=== PATIENT | male | born 1990 | race Caucasian/White ===

== ENCOUNTER 2023-01-22 14:05 | Emergency (ER) | payer OTHER, SELFPAY ==
[2023-01-22 14:20] VITALS: BP 137/89; PULSE 106; RESP 20; TEMP 37.4; O2SAT 98
[2023-01-22 14:50] LABS: Abs Immature Grans 0.06 10^3/uL (0.0-0.06); Absolute Basophil Count 0.05 10^3/uL (0.0-0.2); Absolute Lymphocyte Count 1.75 10^3/uL (1.2-3.4); Absolute Neutrophil Count 7.82 10^3/uL (1.2-6.7); Basophils % 0.5; HCT 43.3 % (40.0-50.0); HGB 15.1 g/dL (13.5-17.5); Immature Grans % 0.6; MCH 30.5 pg (27.0-33.0); MCHC 34.9 % (32.0-36.0); MCV 88 fL (80-95); MPV 8.8 fL (8.0-11.0); Monocytes % 5.8; Neutrophils % 76.1; Platelet Count 239 10^3/uL (130-400); RBC 4.95 10^6/uL (4.36-5.78); RDW 12.5 % (11.8-14.1); RDW-SD 40.4 fL; WBC 10.28 10^3/uL (4.4-10.8)
[2023-01-22] MEDS: LORazepam 1 MG TAB PO (14:52)
--- NOTE | 2023-01-22 14:52 | ED.GENADUL_ITS ---
Discharge Plan Discharge Details Chief Complaint: PsychEval Primary Care Provider: Pinky,Local ED Provider: Jeffrey Geiger Home Meds and New Rx's Prescriptions: No Action multivitamin [Daily Multi-Vitamin] Tablet 1 tab PO DAILY Medical Decision Making 1458 --32-year-old male arrives with law enforcement for mental health evaluation, family concerned with erratic behavior. Patient denies known history of psychiatric illness. Patient denies substance use. No trauma. Patient exhibiting labile and providing odd responses to on history and review of systems. For example, when asked why he is having difficulty sleeping, he responds just trying to figure out a solution. I do not know which color to pick. I am not can tell you which color to pick. You should figure it out. Patient is currently here voluntarily but does seem to lack insight and is exhibiting labile erratic behavior. Concern for acute psychosis likely secondary to clemente. No known psychiatric history. Will obtain CT of the head to assess for space-occupying frontal lesion. Patient has prior history of alcohol use disorder and underwent alcohol rehabilitation 1 year ago and notes no recent use. -- I cat's mother lives at to obtain additional information: She is not able or willing to provide additional information regarding any prior psychiatric history at this time. 1545 --CT head interpreted by radiology: No acute intracranial process. Patient medically screened and no acute medical condition identified. Will consult crisis screener for evaluation. Lab Data Lab results reviewed: Yes I reviewed the patient's lab results. Labs: Laboratory Tests Range/Units 01/22/23 14:45 WBC (4.4-10.8) 10^3/uL 10.28 RBC (4.36-5.78) 10^6/uL 4.95 Hgb (13.5-17.5) g/dL 15.1 Hct (40.0-50.0) % 43.3 MCV (80-95) fL 88 MCH (27.0-33.0) pg 30.5 MCHC (32.0-36.0) % 34.9 RDW (11.8-14.1) % 12.5 Plt Count (130-400) 10^3/uL 239 MPV (8.0-11.0) fL 8.8 Immature Gran % 0.6 Neutrophils % 76.1 Lymphocytes % 17.0 Monocytes % 5.8 Eosinophils % 0.0 Basophils % 0.5 Nucleated RBC % (0.0-0.3) % 0.0 Absolute Neutrophils (1.2-6.7) 10^3/uL 7.82 H Absolute Lymphocytes (1.2-3.4) 10^3/uL 1.75 Absolute Monocytes (0.1-0.8) 10^3/uL 0.60 Absolute Eosinophils (0.0-0.7) 10^3/uL 0.00 Absolute Basophils (0.0-0.2) 10^3/uL 0.05 Sodium (136-145) mmol/L 138 Potassium (3.5-5.1) mmol/L 3.7 Chloride (98-107) mmol/L 102 Carbon Dioxide (21.0-32.0) mmol/L 24.6 Anion Gap (3-11) mmol/L 11.4 H BUN (7-18) mg/dL 16 Creatinine (0.70-1.30) mg/dL 1.1 Est GFR (CKD-EPI 2020) (mL/min/1.73m2) 90.34 Glucose (74-106) mg/dL 158 H Calcium (8.5-10.1) mg/dL 9.4 Total Bilirubin (0.2-1.0) mg/dL 1.0 AST (15-37) U/L 39 H ALT (16-63) U/L 41 Alkaline Phosphatase (46-116) U/L 66 Total Protein (6.4-8.2) g/dL 7.4 Albumin (3.4-5.0) g/dL 4.3 TSH (0.36-3.74) uIU/mL 0.65 Salicylates (<2.8) mg/dL < 2.8 Acetaminophen (10-30) ug/mL < 2 Ethyl Alcohol (<10) mg/dL < 3.0 HPI General Mode of arrival: EMS . Date/Time Provider Initiated Documentation: 01/22/23 14:34 . Limitations to Documentation: altered mental status . Information obtained by: EMS . HPI Narrative: 32-year-old male with no known medical history presents with law enforcement with concern for erratic behavior. Patient's chief complaint is difficulty sleeping. He notes he has been able to sleep for some time. Law enforcement note erratic behavior at home and family concern. He has a restraining order against his . Patient is intermittently forthcoming with history and has odd responses which does limit history and review of systems. Related Data Home Medications Medication Instructions Recorded Confirmed multivitamin (Daily Multi-Vitamin 1 tab PO DAILY 01/22/23 01/22/23 tablet) Allergies Allergy/AdvReac Type Severity Reaction Status Date / Time No Known Allergies Allergy Unverified 01/22/23 14:23 General Stated Complaint: PsychEval [place]: 2 Review of Systems Narrative: Patient states she has pain all over, he has no specific pain. Review of systems is limited secondary to altered mental status. Psychiatric Psychiatric: Denies homicidal ideation and Denies suicidal ideation [facility] Social History Smoking/Tobacco Use Status: Current every day Tobacco Type: cigarettes Smoking risk assessment performed?: Yes Alcohol Intake: never Substance use type: does not use Housing: house Do you feel safe at home: Yes Do you feel safe in your relationship?: Yes Exam Const General: anxious Nutritional Appearance: thin Orientation: alert and awake Limitations: altered mental status HENMT Head: normocephalic and atraumatic Mouth: moist mucous membranes Eyes Conjunctivae: normal conjunctivae Sclera: normal sclerae Neck Neck: trachea midline and supple Resp Auscultation: clear to auscultation bilaterally, no rales, no rhonchi and no wheezes Cardio Rate: regular rate and not tachycardic Rhythm: regular rhythm GI Palpation: soft, not firm, no guarding, no masses, not rigid and nontender Skin General skin exam: no rashes or lesions noted Neuro General: patient alert, patient awake and tone normal Extrem General: no edema Psych Speech and Movement: speech clear Mood: anxious mood Affect: labile affect and anxious affect Attitude: other (Intermittently cooperative) Thought Process: illogical Thought Content: no homicidality and suicidality Insight: poor Judgment: limited Course Vital Signs Vital signs: Vital Signs Temperature 37.4 C 01/22/23 14:20 Pulse 106 H 01/22/23 14:20 Respiratory Rate 20 01/22/23 14:20 Blood Pressure 137/89 01/22/23 14:20 Pulse Oximetry 98 01/22/23 14:20 Temperature 37.4 C 01/22/23 14:20 Temperature Source Skin 01/22/23 14:20 Pulse 106 H 01/22/23 14:20 Respiratory Rate 20 01/22/23 14:20 Respiratory Effort Normal, Non-Labored 01/22/23 14:25 Blood Pressure 137/89 01/22/23 14:20 Blood Pressure Position Sitting 01/22/23 14:20 Pulse Oximetry 98 01/22/23 14:20 Oxygen Delivery Method Room Air 01/22/23 14:20 Oxygen Flow Rate 0 01/22/23 14:20 Pain Level 0 01/22/23 14:20 Lab/Test Results Lab/Test Results: Laboratory Tests Range/Units 01/22/23 14:45 WBC (4.4-10.8) 10^3/uL 10.28 RBC (4.36-5.78) 10^6/uL 4.95 Hgb (13.5-17.5) g/dL 15.1 Hct (40.0-50.0) % 43.3 MCV (80-95) fL 88 MCH (27.0-33.0) pg 30.5 MCHC (32.0-36.0) % 34.9 RDW (11.8-14.1) % 12.5 Plt Count (130-400) 10^3/uL 239 MPV (8.0-11.0) fL 8.8 Immature Gran % 0.6 Neutrophils % 76.1 Lymphocytes % 17.0 Monocytes % 5.8 Eosinophils % 0.0 Basophils % 0.5 Nucleated RBC % (0.0-0.3) % 0.0 Absolute Neutrophils (1.2-6.7) 10^3/uL 7.82 H Absolute Lymphocytes (1.2-3.4) 10^3/uL 1.75 Absolute Monocytes (0.1-0.8) 10^3/uL 0.60 Absolute Eosinophils (0.0-0.7) 10^3/uL 0.00 Absolute Basophils (0.0-0.2) 10^3/uL 0.05
--- NOTE | 2023-01-22 15:12 | DI.CT_ITS ---
Exam(s) CT HEAD WO EXAM: CT HEAD WO CLINICAL HISTORY: altered. TECHNIQUE: Imaging Protocol: Axial computed tomography images with coronal and sagittal reformatted images were created and reviewed COMPARISON: No exams were available for comparison FINDINGS: Ventricles and Extra axial spaces: Normal in size and morphology for the patient's age. Hemorrhage: None. Cerebral parenchyma: No evidence of acute infarct or mass. Midline shift: None. Brainstem/Cerebellum: Normal. Calvarium: Normal. Visualized Paranasal sinuses/Mastoids: Clear. Soft Tissues: Unremarkable. IMPRESSION: No acute intracranial process. RADIATION DOSE DELIVERED: Total DLP DATA REPOSITORY: All CT scans at this facility are submitted to the National Radiology Data Registry (NRDR) Dose Index Registry (DIR) with the [employer] (ACR). RADIATION OPTIMIZATION: All CT scans at this facility use at least one of these dose optimization te chniques: automated exposure control; mA and/or kV adjustment per patient size (includes targeted exa ms where dose is matched to clinical indication); or iterative reconstruction.
[2023-01-22 15:14] LABS: ALT 41 U/L (16-63); AST 39 U/L (15-37); Albumin 4.3 g/dL (3.4-5.0); Alkaline Phosphatase 66 U/L (46-116); Anion Gap 11.4 mmol/L (3-11); BUN 16 mg/dL (7-18); CO2 24.6 mmol/L (21.0-32.0); CREATININE 1.1 mg/dL (0.70-1.30); Calcium 9.4 mg/dL (8.5-10.1); Chloride 102 mmol/L (98-107); Estimated GFR 90.34 (mL/min/1.73m2); Glucose 158 mg/dL (74-106); Potassium 3.7 mmol/L (3.5-5.1); Sodium 138 mmol/L (136-145); TSH (W/Ref FT4) 0.65 uIU/mL (0.36-3.74); Total Protein 7.4 g/dL (6.4-8.2)
[2023-01-22 15:23] LABS: ETHANOL BLOOD < 3.0 mg/dL (<10)
[2023-01-22 15:26] LABS: Acetaminophen < 2 ug/mL (10-30); Salicylate < 2.8 mg/dL (<2.8)
[2023-01-22 16:27] LABS: *AMPHETAMINES SCREEN URINE Negative (Negative); *BARBITURATES SCREEN URINE Negative (Negative); *BENZODIAZEPINES SCREEN URINE Negative (Negative); Cannabinoids THC Negative (Negative); Cocaine Screen,Urine Negative (Negative); METHADONE URINE SCREEN Negative (Negative); OPIATES URINE SCREEN Negative (Negative)
[2023-01-22 16:28] LABS: Tricyclic Antidepressants Negative (Negative)
--- NOTE | 2023-01-22 17:19 | NUR.NOTE ---
Nursing Note: pts mother will not inform medical staff of any previous psychiatric history, stating he will have to be the one to tell you
[2023-01-22] MEDS: diphenhydrAMINE 50 MG/ML VIAL IM (20:06)
[2023-01-22] MEDS: LORazepam 2 MG/ML VIAL 1 MG IM (20:07)
[2023-01-22] MEDS: OLANZapine 10 MG VIAL IM (20:09)
--- NOTE | 2023-01-22 23:10 | W.EDPROG ---
Date of service: 01/22/23 Time of Service: 23:10 Medical Decision Making Patient was seen and assessed by mental health. They 2 are concern for the patient's lack of insight. Patient will be CT scan an EE. I have filled out the physician component. Patient remained stable. During the patient's stay he stated that I want to go to sleep, I want you to give me something to help me sleep, and I do not want a pill. I want a shot. We reviewed the options, and decided to give Zyprexa, 1 mg of Ativan, and 25 mg of Benadryl. Patient excepted this, and took this and tolerated it well. Patient has been resting comfortably. Patient remained stable. Will keep the patient here for psychiatric evaluation. I have extensively reviewed the treatment plan and discharge instructions with the patient. I have addressed all patient concerns at this time. The patient was made aware of what symptoms to monitor for that would warrant a return to the emergency department. Discussed the plan with the patient, they demonstrate verbal understanding and agreement with our assessment and plan at this time. The documentation in this chart was dictated using [employer] dictation software. Please excuse any dictation errors. Sign Out Sign Out Data: Sign Out Comment: Patient here voluntarily for abnormal behavior and difficulty sleeping. Patient medically screened and no acute medical condition identified. UDS pending. [facility] crisis screener was consulted to evaluate the patient. Last updated by Jeffrey Geiger MD at 01/22/23 15:55 Discharge Plan Discharge Details Chief Complaint: PsychEval Clinical Impression: Psychosis Primary Care Provider: Pinky,Local ED Provider: Sami Faith Home Meds and New Rx's Prescriptions: No Action multivitamin [Daily Multi-Vitamin] Tablet 1 tab PO DAILY
--- NOTE | 2023-01-23 00:34 | W.EDPROG ---
Date of service: 01/23/23 Time of Service: 00:34 Medical Decision Making I received signout on this medically cleared 32-year-old patient with EE in place. No active behavioral issues last shift. Will update documentation as clinically warranted and to sign patient out to the oncoming daytime provider. 6:36 AM No active behavioral issues last shift. Will sign patient out to the oncoming daytime provider. Sign Out Sign Out Data: Sign Out Comment: Patient here voluntarily for abnormal behavior and difficulty sleeping. Patient medically screened and no acute medical condition identified. UDS pending. [facility] crisis screener was consulted to evaluate the patient. Last updated by Jeffrey Geiger MD at 01/22/23 15:55 Discharge Plan Discharge Details Chief Complaint: PsychEval Clinical Impression: Psychosis Primary Care Provider: Pinky,Local ED Provider: Sami Faith Home Meds and New Rx's Prescriptions: No Action multivitamin [Daily Multi-Vitamin] Tablet 1 tab PO DAILY
--- NOTE | 2023-01-23 07:19 | ED.PROG_ITS ---
Date of service: 01/23/23 Time of Service: 07:00 Medical Decision Making 32-year-old male presented for psychosis. Medically cleared and currently awaiting placement. EE paperwork has been completed. 1540 -[facility] Patient was accepted in transfer. Sign Out Sign Out Data: Sign Out Comment: Patient here voluntarily for abnormal behavior and difficulty sleeping. Patient medically screened and no acute medical condition identified. UDS pending. [facility] crisis screener was consulted to evaluate the patient. Last updated by Jeffrey Geiger MD at 01/22/23 15:55 Discharge Plan Disposition Patient Disposition: Psychiatric Hospital/Unit Specific Psychiatric Facility: [facility] Condition: Stable Discharge Details Clinical Impression: Psychosis Primary Care Provider: Pinky,Local ED Provider: Edel Holcomb Home Meds and New Rx's Prescriptions: No Action multivitamin [Daily Multi-Vitamin] Tablet 1 tab PO DAILY
--- NOTE | 2023-01-23 09:35 | PDOC.MHCN ---
Date of service: 01/22/23 Time of Service: 20:00 Mental Health Emergency Note Release [facility] release signed:: No Reason for Visit John Paul was brought to [facility] by Laila Mandel due to recent erratic behaviors and concerns for his mental health. In the last 2 weeks has the pt presented for ES prior to today?: Yes, presented at ED at another facility Client Information Client is: New Well Housed: No,status: Not homeless, Unstable housing Non Suicidal Self Injury Current: No History: No Safety Risk/Harm to Self or Others Current Ideation to Harm Self or Others: No Risk: Does risk to harm exist?: No Risk: N/A Duty to warn indicated: No Asssessment/Mental Status Appearance: Unremarkable Attitude: Passive and Guarded Behavior: Poor impulse control Speech: Normal Affect: Cogruent with mood Mood: Elevated, Anxious and Irritable Thought process: Flight of ideas and Goal directed Hallucinations: No evidence Delusions: No evidence Attention: Unremarkable Perception: Not impaired Memory: Intact Insight: Poor Judgement: Poor Neurovegetative Symptoms Sleep: Decrease (Client reports not having restful night of sleep in awhile, family reports he is couch surfing and has probably not had a restful night of sleep in a long time. ) Appetitie: Disordered Interests: No change Energy: No change Libido: Not applicable Substance Use: Other (Client stopped drinking alcohol on 12/11/2021.) Do you use nicotine?: No Have you used substances in the last 7 days?: No Additional Issues: Assaultive/Threatening Behavior: No Medical Concerns: No Client engaged in active self harm w/weapon: No Threatening to run away: No Child reported abuse/neglect: No Voluntarily presenting for services: No Domestic violence is a concern: No Extreme Psychosis or extreme behavior is present: Yes Impression John Paul is in need of a higher level of care to provide him with stabilization, medication, and coping skills. Please refer to his EE for more information. Plan/Disposition Recommended Disposition: Hospitalization No. Plan: Client is currenlty on EE status, client will be seen by [facility] Psychiatry as soon as possible. Reports/communication Outcome discussed with: ED/Personnel
--- NOTE | 2023-01-23 09:59 | CMSP_ITS ---
Date of service: 01/23/23 Time of Service: 09:59 Care Management Safety Plan Status Status: Voluntary Reason for Wait Reason for Wait: Inpatient Admission Safety Plan Safety Plan: VOLUNTARY FOR INPATIENT PSYCHIATRIC STABILIZATION.? Patient is appropriate in all interactions since arriving at [facility]; Pt has demonstrated appropriate coping and communication skills, has articulated his needs and concerns and is fully engaged during staff interactions. Safety plan has been established with patient, and care team, to adhere to patient goals, identify restrictions based on behavioral status, address nutrition, and determine allowed personal belongings, tools for hygiene and personal care. Determine level of activity including ambulation, level of supervision, visitors, and determine privileges based on behaviors and level of engagement by pt. SAFETY PLAN: 1. Will remain on suicide precautions, in paper clothes 2. Will remain in Zone B under direct supervision of one-on-one staff at all times provided by [employer]; MICHAEL, OFFSET PRESS OPERATOR restoration silversmith. 3. May have paper cups, plates, finger foods as well as a cardboard spoon with which to eat meals. 4. Follow [facility] Management of the Admitted Behavioral Health Patient policy. 5. Shower permitted in Zone B at RN discretion. 6. Personal belongings-soft items permitted at RN discretion. 7. Visitors-none at this time. 8. Activities: soft cart items approved per RN discretion. 9.? Bathroom privileges in Zone B 10. Phone: no personal calls at this time except to legal billing coordinator. Due to VOLUNTARY status, if patient wishes to leave [facility], staff will contact [facility] Crisis Screener ([phone]) and On-Call [employer] Patcher ([phone]) as soon as possible. In the event of elopement, notify [facility] Police ([phone]).
[2023-01-23] MEDS: LORazepam 1 MG TAB PO (13:15)
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
[2023-01-23] MEDS: Nicotine 2 MG GUM CH ×2 (14:03→16:40)
--- NOTE | 2023-01-24 07:59 | NUR.NOTE ---
Accessed chart to determine disposition for records. Nursing Note:
== END 2023-01-23 19:03 ==
PROVIDERS: Student in an Organized Health Care Education/Training Program; Emergency Provider Emergency Medicine Emergency Medical Services
DX: G47.00 Insomnia, unspecified (principal); Z72.0 Tobacco use; F29 Unspecified psychosis not due to a substance or known physiological condition
CPT/HCPCS: 00123; 36415; 80053; 80307; 96127; 96372; 99285; 70450; 80320; 80329; 84443; 85025; J1200; J2060

== ENCOUNTER 2025-01-31 17:22 | Emergency (ER) | payer BC, SELFPAY ==
[2025-01-31 17:26] VITALS: BP 178/113; PULSE 95; RESP 18; TEMP 36.6; O2SAT 98
--- NOTE | 2025-01-31 17:52 | W.ED.GENAD ---
Discharge Plan Discharge Details Chief Complaint: PsychEval Primary Care Provider: Unknown,Unknown ED Provider: Eunice Laughlin Home Meds and New Rx's Prescriptions: No Action multivitamin [Daily Multi-Vitamin] Tablet 1 tab PO DAILY HPI General Mode of arrival: ambulatory. Date/Time Provider Initiated Documentation: 01/31/25 17:32. Limitations to Documentation: altered mental status. Information obtained by: patient, police, RN notes reviewed and old records reviewed. HPI Narrative: 34 year old male presents to the ER with a chief complaint of erratic behavior, he presents manic, has pressured speech, flight of ideas and is speaking in cyclical sentences not making any sense. He is able to answer questions when directly asked. He states that he does take lithium but did not take it yesterday. Report is that he told the police to shoot him prior to arrival. I did speak with [facility] police which presented with the patient they have been with him since approximately 10 AM this morning, and that this is not his normal baseline mentation. He has recently gone through multiple stressful situations including a divorce and losing a job. Patient states he has not slept in approximately 24 hours. No signs of trauma. Related Data Home Medications ?Medication ?Instructions ?Recorded ?Confirmed multivitamin (Daily Multi-Vitamin 1 tab PO DAILY 01/22/23 01/22/23 tablet) Allergies Allergy/AdvReac Type Severity Reaction Status Date / Time No Known Allergies Allergy Unverified 01/22/23 14:23 General Stated Complaint: PsychEval [place]: 2 Review of Systems Psychiatric Psychiatric: Reports as per HPI Exam Psych Speech and Movement: pressured speech and restless Mood: manic mood Affect: euphoric affect Thought Process: flight of ideas, illogical and loose association Insight: poor Judgment: poor Course Vital Signs Vital signs: Vital Signs Temperature 36.6 C 01/31/25 17:26 Pulse 95 H 01/31/25 17:26 Respiratory Rate 18 01/31/25 17:26 Blood Pressure 178/113 H 01/31/25 17:26 Pulse Oximetry 98 01/31/25 17:26 Temperature 36.6 C 01/31/25 17:26 Temperature Source Oral 01/31/25 17:26 Pulse 95 H 01/31/25 17:26 Respiratory Rate 18 01/31/25 17:26 Blood Pressure 178/113 H 01/31/25 17:26 Blood Pressure Position Supine 01/31/25 17:26 Pulse Oximetry 98 01/31/25 17:26 Oxygen Delivery Method Room Air 01/31/25 17:26 Oxygen Flow Rate 0 01/31/25 17:26 Medical Decision Making 34 year old male presents to the ER with a chief complaint of erratic behavior, he presents manic, has pressured speech, flight of ideas and is speaking in cyclical sentences not making any sense. He is able to answer questions when directly asked. He states that he does take lithium but did not take it yesterday. Report is that he told the police to shoot him prior to arrival. I did speak with [facility] police which presented with the patient they have been with him since approximately 10 AM this morning, and that this is not his normal baseline mentation. He has recently gone through multiple stressful situations including a divorce and losing a job. Patient states he has not slept in approximately 24 hours. No signs of trauma. [facility] health eval ordered, CBC BMP UDS lithium level salicylate and Tylenol level. Patient is here involuntarily. Patient presented here with a warrant and accompanied by law enforcement. Patient transferred over to zone B he has been cooperative with blood draw and supplying a urine sample. Patient is medically cleared lithium level is less than 0.10, positive for cannabinoid, creatinine slightly high at 1.26 no leukocytosis. Salicylate is less than 3.0, Tylenol is less than 2. A order for as needed lorazepam was placed. 1 mg as needed for agitation or anxiety up to 3 times daily. Patient was given 1 mg of p.o. lorazepam. [facility] was called for an eval. EE paperwork filled out. Melatonin 3 mg PO ordered Q HS. Spoke with Sandra with [facility] who reports that patient was speaking about [place] 15's and just put me out of my misery, also reported that he was making obscene sexual comments to ED staff. On my re-evaluation patient resting in bed comfortably appears calm and cooperative at this time. Care is to be handed off to oncoming provider Dr. Faith pending second certification and re-eval by [facility] in AM. Lab Data Lab results reviewed: Yes I reviewed the patient's lab results. Labs: Laboratory Tests Range/Units 01/31/25 01/31/25 17:42 17:52 WBC (4.4-10.8) 10^3/uL 6.87 RBC (4.36-5.78) 10^6/uL 4.75 Hgb (13.5-17.5) g/dL 14.4 Hct (40.0-50.0) % 42.3 MCV (80-95) fL 89 MCH (27.0-33.0) pg 30.3 MCHC (32.0-36.0) % 34.0 RDW (11.8-14.1) % 12.1 Plt Count (130-400) 10^3/uL 213 MPV (8.0-11.0) fL 9.1 Sodium (136-145) mmol/L 142 Potassium (3.5-5.1) mmol/L 3.6 Chloride (98-107) mmol/L 105 Carbon Dioxide (20.0-31.0) mmol/L 27.6 Anion Gap (3-11) mmol/L 9.4 BUN (9-23) mg/dL 19 Creatinine (0.73-1.18) mg/dL 1.26 H Est GFR (CKD-EPI 2020) (mL/min/1.73m2) 64.53 Glucose (74-106) mg/dL 94 Calcium (8.3-10.6) mg/dL 9.1 Salicylates (<30.0) mg/dL < 3.0 Urine Opiates Screen (Negative) Negative Urine Methadone Screen (Negative) Negative Acetaminophen (10-20) ug/mL < 2 L Ur Barbiturates Screen (Negative) Negative Ur Tricyclics Screen (Negative) Negative Ur Amphetamines Screen (Negative) Negative U Benzodiazepines Scrn (Negative) Negative [place] (0.60-1.20) mmol/L < 0.10 L Urine Cocaine Screen (Negative) Negative U Cannabinoids Screen (Negative) Positive A [facility] Social History Smoking/Tobacco Use Status: Current every day Tobacco Type: pipe and smokeless tobacco Smoking risk assessment performed?: Yes Alcohol Intake: never Substance use type: does not use Housing: house Do you feel safe at home: Yes Do you feel safe in your relationship?: Yes
[2025-01-31 18:00] LABS: HCT 42.3 % (40.0-50.0); HGB 14.4 g/dL (13.5-17.5); MCH 30.3 pg (27.0-33.0); MCHC 34.0 % (32.0-36.0); MCV 89 fL (80-95); MPV 9.1 fL (8.0-11.0); Platelet Count 213 10^3/uL (130-400); RBC 4.75 10^6/uL (4.36-5.78); RDW 12.1 % (11.8-14.1); RDW-SD 39.8 fL; WBC 6.87 10^3/uL (4.4-10.8)
[2025-01-31 18:23] LABS: Anion Gap 9.4 mmol/L (3-11); BUN 19 mg/dL (9-23); CO2 27.6 mmol/L (20.0-31.0); Calcium 9.1 mg/dL (8.3-10.6); Chloride 105 mmol/L (98-107); Glucose 94 mg/dL (74-106); Potassium 3.6 mmol/L (3.5-5.1); Sodium 142 mmol/L (136-145)
[2025-01-31 18:24] LABS: Cannabinoids THC Positive (Negative)
[2025-01-31 18:26] LABS: Acetaminophen < 2 ug/mL (10-20); Lithium < 0.10 mmol/L (0.60-1.20); Salicylate < 3.0 mg/dL (<30.0)
[2025-01-31] MEDS: LORazepam 1 MG TAB PO (19:06)
[2025-01-31 19:32] VITALS: BP 171/112; PULSE 114; RESP 16; TEMP 36.7; O2SAT 98
[2025-01-31] MEDS: Melatonin 3 MG TAB PO (20:33)
--- NOTE | 2025-01-31 22:02 | PDOC.MHCN_ITS ---
Date of service: 01/31/25 Time of Service: 20:13 Mental Health Emergency Note Release [facility] release signed:: No Reason for Visit The client is known to [facility] as he is a previous client, however was discharged from the agency in June of 2024 due to non-engagement in services. The client was hospitalized involuntarily in 2022. Today [facility] Hal completes MH warrant after conversation with the clients family and [facility]. This teletypewriter operator assesses the client via telehealth for initial assessment. In the last 2 weeks has the pt presented for ES prior to today?: No Client Information Client is: New Well Housed: Yes Non Suicidal Self Injury Current: No History: No Safety Risk/Harm to Self or Others Current Ideation to Harm Self or Others: No CALM/Risk Level Does risk to harm exist?: yes. Access to means: No. Risk: High Risk Duty to warn indicated: No Asssessment/Mental Status Appearance: Disheveled Attitude: Guarded Behavior: Hyperactivity and Poor impulse control Speech: Hesitant Affect: Cogruent with mood Mood: Elevated, Anxious and Irritable Thought process: Loose associations, Flight of ideas, Circumstational, Tangential and Poverty of content Hallucinations: No Delusions: yes, Persectory/Paranoid Attention: Wandering and Poor concentration Perception: Not impaired Orientation: Fully orientated Memory: Intact Insight: Poor Judgement: Poor Neurovegetative Symptoms Sleep: Decrease Appetitie: Decrease Interests: Decrease Energy: Decrease Libido: Not applicable Substance Use: Do you use nicotine?: No Have you used substances in the last 7 days?: No Additional Issues: Assaultive/Threatening Behavior: Yes Medical Concerns: No Client engaged in active self harm w/weapon: No Threatening to run away: No Child reported abuse/neglect: No Voluntarily presenting for services: No Domestic violence is a concern: No Extreme Psychosis or extreme behavior is present: Yes Impression The client is a 34 y/o male who per his report currently resides in [place], [place]. Per the clients mother report the client's currently has an RFA against him and he is not allowed any contact with his or children at this time. The client presents with symptoms most congruent to unspecified psychosis as evidenced by the clients self-report of minimal sleep, rapid speech, labile affect, and constant inability to have a linear conversation. Per the report of the [facility] ED staff the client has been highly inappropriate talking about his penis and stating that he wants to have sexual intercourse with all of the nurses. The client is able to follow the questions that this teletypewriter operator is asking, however when asked what brought him to the hospital he states: If my mother walks through the door put me out of my fuckin misery. The client denies SI/HI as well as intent and plan, however it is reported that earlier today the client was asking deputies to shoot him. The client does not wish to engage with this teletypewriter operator further. Plan/Disposition Recommended Disposition: Hospitalization No. Plan: The client will remain at [facility] ED on EE status pending 2nd certification by a psychiatrist at [facility]. The client will be assessed 2x daily by [facility] staff. Referrals will be sent to , [facility] transfer station, [facility], and . Person reported agreement to plan: No Reports/communication Outcome discussed with: ED/Personnel (Verbal given to ED provider Eunice Laughlin)
[2025-01-31] MEDS: Nicotine 4 MG GUM CH (23:52)
[2025-02-01] MEDS: LORazepam 1 MG TAB 2 MG PO (04:20)
[2025-02-01] MEDS: Nicotine 4 MG GUM CH ×3 (04:20→20:59)
--- NOTE | 2025-02-01 07:58 | ED.PSYCHBOAR ---
Date of service: 02/01/25 Time of Service: 07:58 Psychiatric Border Handoff Update Brief Story: Suicidal male, potential manic episode. Involuntary with EE status, pending second certification. Patient did require single dose of Ativan yesterday evening. Status: EE Able to leave: no, this patient is an EE MDM Shift Events: No active behavioral issues on the shift. Patient signed out to Dr. Montgomery. Mediation Reconciliation performed: Yes Code Status ordered: Yes Diet ordered: Yes Discharge Plan Discharge Details Chief Complaint: PsychEval Primary Care Provider: Unknown,Unknown ED Provider: Ad Villalobos Home Meds and New Rx's Prescriptions: No Action multivitamin [Daily Multi-Vitamin] Tablet 1 tab PO DAILY
[2025-02-01 08:37] VITALS: BP 117/77; PULSE 95; RESP 16; TEMP 36.1; O2SAT 99
--- NOTE | 2025-02-01 08:45 | CMSP_ITS ---
Date of service: 02/01/25 Time of Service: 08:45 Care Management Safety Plan Status Status: Involuntary Reason for Wait Reason for Wait: Inpatient Admission and Assessment/Screening Safety Plan Safety Plan: INVOLUNTARY FOR INPATIENT PSYCHIATRIC STABILIZATION.? Patient is appropriate in all interactions since arriving at [facility]; Pt has demonstrated appropriate coping and communication skills, has articulated his or her needs and concerns and is fully engaged during staff interactions. Safety plan has been established with patient, and care team, to adhere to patient goals, identify restrictions based on behavioral status, address nutrition, and determine allowed personal belongings, tools for hygiene and personal care. Determine level of activity including ambulation, level of supervision, visitors, and determine privileges based on behaviors and level of engagement by pt. SAFETY PLAN: 1. Will remain on suicide precautions, in paper clothes 2. Will remain in Zone B under direct supervision of one-on-one staff at all times provided by [employer]; MICHAEL, COMMUNITY ADMINISTRATOR rotary slicing machine operator. 3. May have paper cups, plates, finger foods as well as a cardboard spoon with which to eat meals. 4. Follow [facility] Management of the Admitted Behavioral Health Patient policy. 5. Shower available in Zone B without restriction. 6. Personal belongings-soft items permitted at RN discretion. 7. Visitors-none at this time. 8. Activities: soft cart items approved per RN discretion. 9.? Bathroom available in Zone B without restriction. 10. Phone: limited to personal injury paralegal on [facility] cordless phone at RN discretion. Due to INVOLUNTARY status, patient is being held at [facility] by the Department of Mental Health ([facility]) until 2nd certification by [facility] Psychiatrist can be performed (within 24 hours). Staff will provide de-escalation support (CPI) as needed. If patient wishes to leave [facility], staff will contact [facility] Crisis Screener ([phone]) and Physician In Private Practice ([phone]) as soon as possible. In the event of elopement, notify [place] [employer] Police ([phone]). Patient is currently involuntarily at [facility]. [facility] Frontline Firepot Operator And Tender will continue seeking placement. Please contact the Physician In Private Practice for any needed changes to Safety Plan. Safety plan has been provided to interdepartmental care team. Patient will be transported by [employer] at time of discharge.
--- NOTE | 2025-02-01 08:45 | PDOC.CMSAFE ---
Date of service: 02/01/25 Time of Service: 08:45 Care Management Safety Plan Status Status: Involuntary Reason for Wait Reason for Wait: Inpatient Admission and Assessment/Screening Safety Plan Safety Plan: INVOLUNTARY FOR INPATIENT PSYCHIATRIC STABILIZATION.? Patient is appropriate in all interactions since arriving at [facility]; Pt has demonstrated appropriate coping and communication skills, has articulated his or her needs and concerns and is fully engaged during staff interactions. Safety plan has been established with patient, and care team, to adhere to patient goals, identify restrictions based on behavioral status, address nutrition, and determine allowed personal belongings, tools for hygiene and personal care. Determine level of activity including ambulation, level of supervision, visitors, and determine privileges based on behaviors and level of engagement by pt. SAFETY PLAN: 1. Will remain on suicide precautions, in paper clothes 2. Will remain in Zone B under direct supervision of one-on-one staff at all times provided by [employer]; MICHAEL, INSURANCE CLAIMS CLERK bone process operator. 3. May have paper cups, plates, finger foods as well as a cardboard spoon with which to eat meals. 4. Follow [facility] Management of the Admitted Behavioral Health Patient policy. 5. Shower available in Zone B without restriction. 6. Personal belongings-soft items permitted at RN discretion. 7. Visitors-none at this time. 8. Activities: soft cart items approved per RN discretion. 9.? Bathroom available in Zone B without restriction. 10. Phone: limited to family law legal assistant on [facility] cordless phone at RN discretion. Due to INVOLUNTARY status, patient is being held at [facility] by the Department of Mental Health ([facility]) until 2nd certification by [facility] Psychiatrist can be performed (within 24 hours). Staff will provide de-escalation support (CPI) as needed. If patient wishes to leave [facility], staff will contact [facility] Crisis Screener ([phone]) and Organ Tuner ([phone]) as soon as possible. In the event of elopement, notify [place] [employer] Police ([phone]). Patient is currently involuntarily at [facility]. [facility] Frontline Flat Screen Worker will continue seeking placement. Please contact the Organ Tuner for any needed changes to Safety Plan. Safety plan has been provided to interdepartmental care team. Patient will be transported by [facility] at time of discharge.
--- NOTE | 2025-02-01 10:57 | PDOC.MHPN2 ---
Date of service: 02/01/25 Time of Service: 10:00 Mental Health Emergency Note Release [facility] release signed:: No Reason for Visit The client is known to [facility] as he is a previous client, however was discharged from the agency in June of 2024 due to non-engagement in services. The client was hospitalized involuntarily in 2022. Yesterday [facility] Hal completes MH warrant after conversation with the clients family and [facility]. This advertising copy writer is present for 2nd certification with psychiatrist from [facility], Dr. Delma Rees. In the last 2 weeks has the pt presented for ES prior to today?: No Client Information Client is: New Well Housed: Yes CALM/Risk Level Does risk to harm exist?: yes. Access to means: No. Impression The client is a 34 y/o male who per his report currently resides in [place], [place]. Per the clients mother report the client's currently has an RFA against him and he is not allowed any contact with his or children at this time. The client presents with symptoms most congruent to unspecified psychosis as evidenced by the clients self-report of minimal sleep, rapid speech, labile affect, and constant inability to have a linear conversation. The client is laying down resting when this advertising copy writer and the psychiatrist from [facility] arrive on telehealth. The client presents with pressured non-linear speech and appears to be fixated on how he does not need to be in the hospital and does not want to go to [place]. The client denies SI/HI as well as intent and plan. Plan/Disposition Recommended Disposition: Hospitalization No. Plan: The client will remain at [facility] ED on EE status pending placement in an inpatient facility. Per report of the psychiatrist she is upholding the 2nd certification. The client will be re-assessed 2x daily until placement is secured. Person reported agreement to plan: No Reports/communication Outcome discussed with: ED/Personnel (Verbal provided to [facility] zone b staff)
--- NOTE | 2025-02-01 12:57 | CMPROGNOTE_ITS ---
Date of service: 02/01/25 Time of Service: 12:57 Care Management Progress Note Progress Note Text Progress Note Text: CM huddled with ED RN, MICHAEL, and [facility] clinician (over the phone), to discuss John Paul's plan of care. Per [facility], John Paul had a second certification today, which was upheld. Per RN, John Paul has presented as manic today, very talkative but pleasant. Per [facility], he has a diagnosis of bipolar 1, and he has reportedly stopped taking his medication at home. He has also had some recent stressors involving family, and there is an RFA against him by his , which states that he cannot have contact with his or children, as reported by [facility]. John Paul is currently involuntary, and referrals are pending at facilities. Per report, Guillermo reached out and requested medical information today, which was sent. Safety plan in place; CM will continue to follow. Social Determinants of Health Screening Will the Patient Participate in the Screening?: Unable to obtain
[2025-02-01] MEDS: LORazepam 1 MG TAB PO ×2 (15:13→20:24)
[2025-02-01 20:20] VITALS: BP 126/80; PULSE 110; RESP 17; TEMP 36.7; O2SAT 98
[2025-02-01] MEDS: OLANZapine 5 MG TAB PO (20:25)
[2025-02-01] MEDS: Melatonin 3 MG TAB PO (20:25)
[2025-02-02] MEDS: Nicotine 4 MG GUM CH ×7 (05:40→21:22)
--- NOTE | 2025-02-02 08:13 | CMSP_ITS ---
Date of service: 02/02/25 Time of Service: 08:13 Care Management Safety Plan Status Status: Involuntary Reason for Wait Reason for Wait: Inpatient Admission Safety Plan Safety Plan: INVOLUNTARY FOR INPATIENT PSYCHIATRIC STABILIZATION.? Patient is appropriate in all interactions since arriving at [facility]; Pt has demonstrated appropriate coping and communication skills, has articulated his or her needs and concerns and is fully engaged during staff interactions. Safety plan has been established with patient, and care team, to adhere to patient goals, identify restrictions based on behavioral status, address nutrition, and determine allowed personal belongings, tools for hygiene and personal care. Determine level of activity including ambulation, level of supervision, visitors, and determine privileges based on behaviors and level of engagement by pt. SAFETY PLAN: 1. Will remain on suicide precautions, in paper clothes 2. Will remain in Zone B under direct supervision of one-on-one staff at all times provided by [employer]; MICHAEL, ASSET PROTECTION DETECTIVE reel film inspector. 3. May have paper cups, plates, finger foods as well as a cardboard spoon with which to eat meals. 4. Follow [facility] Management of the Admitted Behavioral Health Patient policy. 5. Shower available in Zone B without restriction. 6. Personal belongings-soft items permitted at RN discretion. 7. Visitors-none at this time. 8. Activities: soft cart items approved per RN discretion. 9.? Bathroom available in Zone B without restriction. 10. Phone: limited to legal specialist on [facility] cordless phone at RN discretion. Due to INVOLUNTARY status, patient is being held at [facility] by the Department of Mental Health ([facility]) until 2nd certification by [facility] Psychiatrist can be performed (within 24 hours). Staff will provide de-escalation support (CPI) as needed. If patient wishes to leave [facility], staff will contact [facility] Crisis Screener ([phone]) and Measurement Department Chief Clerk ([phone]) as soon as possible. In the event of elopement, notify [place] [employer] ([phone]). Patient is currently involuntarily at [facility]. [facility] Frontline Sewage Plant Operator will continue seeking placement. Please contact the Measurement Department Chief Clerk for any needed changes to Safety Plan. Safety plan has been provided to interdepartmental care team. Patient will be transported by [employer] at time of discharge.
--- NOTE | 2025-02-02 08:13 | PDOC.CMSAFE ---
Date of service: 02/02/25 Time of Service: 08:13 Care Management Safety Plan Status Status: Involuntary Reason for Wait Reason for Wait: Inpatient Admission Safety Plan Safety Plan: INVOLUNTARY FOR INPATIENT PSYCHIATRIC STABILIZATION.? Patient is appropriate in all interactions since arriving at [facility]; Pt has demonstrated appropriate coping and communication skills, has articulated his or her needs and concerns and is fully engaged during staff interactions. Safety plan has been established with patient, and care team, to adhere to patient goals, identify restrictions based on behavioral status, address nutrition, and determine allowed personal belongings, tools for hygiene and personal care. Determine level of activity including ambulation, level of supervision, visitors, and determine privileges based on behaviors and level of engagement by pt. SAFETY PLAN: 1. Will remain on suicide precautions, in paper clothes 2. Will remain in Zone B under direct supervision of one-on-one staff at all times provided by [employer]; MICHAEL, SOW FARM BARN TECHNICIAN community coordinator. 3. May have paper cups, plates, finger foods as well as a cardboard spoon with which to eat meals. 4. Follow [facility] Management of the Admitted Behavioral Health Patient policy. 5. Shower available in Zone B without restriction. 6. Personal belongings-soft items permitted at RN discretion. 7. Visitors-none at this time. 8. Activities: soft cart items approved per RN discretion. 9.? Bathroom available in Zone B without restriction. 10. Phone: limited to legal executive on [facility] cordless phone at RN discretion. Due to INVOLUNTARY status, patient is being held at [facility] by the Department of Mental Health ([facility]) until 2nd certification by [facility] Psychiatrist can be performed (within 24 hours). Staff will provide de-escalation support (CPI) as needed. If patient wishes to leave [facility], staff will contact [facility] Crisis Screener ([phone]) and Food Counter Attendant ([phone]) as soon as possible. In the event of elopement, notify [place] [employer] Police ([phone]). Patient is currently involuntarily at [facility]. [facility] Frontline Cancellation Clerk will continue seeking placement. Please contact the Food Counter Attendant for any needed changes to Safety Plan. Safety plan has been provided to interdepartmental care team. Patient will be transported by [employer] at time of discharge.
--- NOTE | 2025-02-02 08:14 | PDOC.CMPRO ---
Social Determinants of Health Screening Will the Patient Participate in the Screening?: Unable to obtain
--- NOTE | 2025-02-02 12:31 | NUR.NOTE ---
Nursing Note: pt upset that he has to have staff cut his food for him d/t to having to use a paper spoon. Says oh its because I am a fucking retard and walked away
--- NOTE | 2025-02-02 13:20 | NUR.NOTE ---
Nursing Note: pt said he had to take a lorazepam ti was explained to him tat it is not a requirement for him to take as needed medication to be here. He verbalized he does not feel anxious or agitated. Pt was not given lorazepam at this time
--- NOTE | 2025-02-02 13:54 | ED.PSYCHBOAR ---
Date of service: 02/02/25 Time of Service: 13:54 Psychiatric Border Handoff Update Brief Story: Patient here with clemente, pressured speech, intermittent agitation. Patient notably medically clear for psychiatric treatment. Awaiting bed availability. Status: EE Able to leave: no, this patient is an EE Behavioral Concerns: None overnight Potential Disposition: No inpatient beds identified MDM Shift Events: -- Notified by [facility] crisis screener that there was an issue with the second certification, specifically regarding sure if statements. They are working to correct this. [id number] --I received call from Judie Guerrero, nurse practitioner at [facility]. Discussed ED presentation and course, she will except the patient in transfer. 1530 --unfortunately given issues with second certification, as notified by [facility] that [facility] will decline transfer until EE fully processed. Discharge Plan Disposition Condition: Serious Discharge Details Chief Complaint: PsychEval Clinical Impression: Clemente, Psychosis, Noncompliance with medications Primary Care Provider: Unknown,Unknown ED Provider: Jeffrey Geiger Home Meds and New Rx's Prescriptions: No Action multivitamin [Daily Multi-Vitamin] Tablet 1 tab PO DAILY
--- NOTE | 2025-02-02 15:31 | PDOC.MHPN2 ---
Date of service: 02/02/25 Time of Service: 10:00 Mental Health Emergency Note Release [facility] release signed:: Yes Reason for Visit Mr Browning is a 34 year old male who resides in [facility]. The client is currently on an EE for making suicidal statements to law enforcement. The client denies SI, HI and NSSI. The client reports wanting to go home. The client states he just needs Ativan and to put in for a restraining order against his parents as they have been visiting without calling him. The client states they will enter his home without knocking. The client states that his ex took his kids and has full custody and that he does not want his kids anyway as he just wants to get laid. The client reports wanting to go home. The client presents with poor insight stating it is all his parents fault that he is on a EE. 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 In the last 2 weeks has the pt presented for ES prior to today?: No CALM/Risk Level Does risk to harm exist?: No Asssessment/Mental Status Appearance: Unremarkable Attitude: Friendly Behavior: Hyperactivity Speech: Pressured Affect: Expansive Mood: Expansive Thought process: Tangential Hallucinations: No evidence Delusions: No evidence Attention: Unremarkable Perception: Not impaired Orientation: Fully orientated Memory: Intact Insight: Poor Judgement: Poor Neurovegetative Symptoms Sleep: No change Appetitie: No change Interests: No change Energy: No change Libido: Not applicable Plan/Disposition Recommended Disposition: Hospitalization facilities contacted. Plan: The client is currently on a EE at [facility] waiting for second cert. Reports/communication Outcome discussed with: ED/Personnel
--- NOTE | 2025-02-02 16:01 | NUR.NOTE ---
Nursing Note: pt says I do not want to be here (emergancy department zone b) anymore and if they send me to [facility] I will burn it to the ground
--- NOTE | 2025-02-02 17:28 | CMPROGNOTE_ITS ---
Date of service: 02/02/25 Time of Service: 17:28 Care Management Progress Note Progress Note Text Progress Note Text: CM huddled with [facility] and [facility] staff this morning to discuss John Paul's plan of care. Per report, John Paul had his second certification, which was upheld. [facility] stated that John Paul is presenting with clemente and tangential thought process. Per report, he is denying SI/HI, and would like to leave; he is currently involuntary, therefore he will remain at [facility] until he is transferred for inpatient psychiatric care. This afternoon, [facility] had a bed available to take him, and MD to MD was completed, but at that time it was found that his EE/second certification paperwork was incomplete, therefore it had to be completed again, and he will need to have another second certification. Per RN, [facility] is coming in to facilitate this process quickly, as there is a bed available at . This may delay his discharge, if [facility] is not able to set up transport after the second certification process is complete. Safety plan in place while he awaits transfer; CM will continue to follow. Social Determinants of Health Screening Will the Patient Participate in the Screening?: Unable to obtain
[2025-02-02 19:22] VITALS: BP 121/70; PULSE 109; RESP 18; TEMP 36.8; O2SAT 100
--- NOTE | 2025-02-02 19:39 | MHPN_ITS ---
Date of service: 02/02/25 Time of Service: 18:59 Mental Health Emergency Note Release [facility] release signed:: Yes Reason for Visit Mr Browning is a 34 year old male who currently resides in [facility]. The client denies SI, HI and NSSI. The client reports that he has spent his last Bba[place] with his kids as his ex has filed a restraining order against him. The client reports that a lot of things could have landed him in this position of being on an EE at the hospital as his mouth is so big he could fit his foot in it. The client at one pointed stated that this clinician needed to use simpler words. The client states that he does not want to go to [place] and that he has setup shop here, pointing to an area outside of his room at [facility]. The client reports that he is good and can handle things himself when he leaves. Per RN report the client stated that if he goes to [place] he will burn it down. In the last 2 weeks has the pt presented for ES prior to today?: No CALM/Risk Level Does risk to harm exist?: No Asssessment/Mental Status Appearance: Unremarkable Attitude: Friendly Behavior: Hyperactivity Speech: Pressured Affect: Expansive Mood: Expansive Thought process: Tangential Hallucinations: No evidence Delusions: No evidence Attention: Unremarkable Perception: Not impaired Orientation: Fully orientated Memory: Intact Insight: Poor Judgement: Poor Neurovegetative Symptoms Sleep: No change Appetitie: No change Interests: No change Energy: No change Additional Issues: Assaultive/Threatening Behavior: No Medical Concerns: No Client engaged in active self harm w/weapon: No Threatening to run away: No Child reported abuse/neglect: No Voluntarily presenting for services: No Domestic violence is a concern: No Plan/Disposition Recommended Disposition: Hospitalization facilities contacted. Plan: The client is waiting at [facility] b on a EE for in patient treatment. Reports/communication Outcome discussed with: ED/Personnel
--- NOTE | 2025-02-02 22:52 | ED.PSYCHBOAR ---
Date of service: 02/02/25 Time of Service: 22:53 Psychiatric Border Handoff Update Brief Story: Apparently there was some issue with the initial EE paperwork that was submitted and even though the patient had had a second certification done by psychiatry and new PE had to be submitted which I filled out. Patient still has flight of ideas and pressured speech. Made a statement that he was brought down [facility] if he was sent there. I do not feel he has capacity to be safely discharged and he is not willing to be voluntary so I do feel he still requires involuntary placement. Status: EE Discharge Plan Disposition Condition: Serious Discharge Details Chief Complaint: PsychEval Clinical Impression: Amanda, Psychosis, Noncompliance with medications Primary Care Provider: Unknown,Unknown ED Provider: Sami Faith Home Meds and New Rx's Prescriptions: No Action multivitamin [Daily Multi-Vitamin] Tablet 1 tab PO DAILY
[2025-02-02] MEDS: Acetaminophen 500 MG TAB 1000 MG PO (23:43)
[2025-02-02] MEDS: OLANZapine 5 MG TAB PO (23:49)
[2025-02-03] MEDS: Nicotine 4 MG GUM CH ×3 (00:02→13:37)
[2025-02-03] MEDS: Melatonin 3 MG TAB 6 MG PO (00:53)
[2025-02-03] MEDS: LORazepam 1 MG TAB PO ×2 (03:00→11:03)
[2025-02-03] MEDS: OLANZapine 5 MG TAB PO (03:57)
[2025-02-03 07:02] VITALS: BP 106/67; PULSE 114; TEMP 36.1; O2SAT 95
--- NOTE | 2025-02-03 07:28 | CMSP_ITS ---
Date of service: 02/03/25 Time of Service: 07:28 Care Management Safety Plan Status Status: Involuntary Reason for Wait Reason for Wait: Inpatient Admission Safety Plan Safety Plan: INVOLUNTARY FOR INPATIENT PSYCHIATRIC STABILIZATION.? Patient is appropriate in all interactions since arriving at [facility]; Pt has demonstrated appropriate coping and communication skills, has articulated his or her needs and concerns and is fully engaged during staff interactions. Safety plan has been established with patient, and care team, to adhere to patient goals, identify restrictions based on behavioral status, address nutrition, and determine allowed personal belongings, tools for hygiene and personal care. Determine level of activity including ambulation, level of supervision, visitors, and determine privileges based on behaviors and level of engagement by pt. SAFETY PLAN: 1. Will remain on suicide precautions, in paper clothes 2. Will remain in Zone B under direct supervision of one-on-one staff at all times provided by [employer]; MICHAEL, CEMENT STORAGE WORKER engraving press operator. 3. May have paper cups, plates, finger foods as well as a cardboard spoon with which to eat meals. 4. Follow [facility] Management of the Admitted Behavioral Health Patient policy. 5. Shower available in Zone B without restriction. 6. Personal belongings-soft items permitted at RN discretion. 7. Visitors-none at this time. 8. Activities: soft cart items approved per RN discretion. 9.? Bathroom available in Zone B without restriction. 10. Phone: limited to legal operations manager on [facility] cordless phone at RN discretion. Due to INVOLUNTARY status, patient is being held at [facility] by the Department of Mental Health ([facility]) until 2nd certification by [facility] Psychiatrist can be performed (within 24 hours). Staff will provide de-escalation support (CPI) as needed. If patient wishes to leave [facility], staff will contact [facility] Crisis Screener ([phone]) and Biostatistics Manager ([phone]) as soon as possible. In the event of elopement, notify [place] [employer] Police ([phone]). Patient is currently involuntarily at [facility]. [facility] Frontline Hand Decorator will continue seeking placement. Please contact the Biostatistics Manager for any needed changes to Safety Plan. Safety plan has been provided to interdepartmental care team. Patient will be transported by [employer] at time of discharge.
--- NOTE | 2025-02-03 07:28 | PDOC.CMPRO ---
Date of service: 02/03/25 Time of Service: 15:06 Care Management Progress Note Progress Note Text Progress Note Text: CM huddled with [facility] B staff, [facility], ED MD and updated perennial house manager surrounding John Paul's plan of care. Per report, [facility] states the EE did not stick. Bed offer at [place] offered and John Paul chose to safety plan home, today. Safety plan in place. CM will follow. Status Status: Voluntary Social Determinants of Health Screening Will the Patient Participate in the Screening?: Unable to obtain
--- NOTE | 2025-02-03 07:28 | PDOC.CMSAFE ---
Date of service: 02/03/25 Time of Service: 07:28 Care Management Safety Plan Status Status: Involuntary Reason for Wait Reason for Wait: Inpatient Admission Safety Plan Safety Plan: INVOLUNTARY FOR INPATIENT PSYCHIATRIC STABILIZATION.? Patient is appropriate in all interactions since arriving at [facility]; Pt has demonstrated appropriate coping and communication skills, has articulated his or her needs and concerns and is fully engaged during staff interactions. Safety plan has been established with patient, and care team, to adhere to patient goals, identify restrictions based on behavioral status, address nutrition, and determine allowed personal belongings, tools for hygiene and personal care. Determine level of activity including ambulation, level of supervision, visitors, and determine privileges based on behaviors and level of engagement by pt. SAFETY PLAN: 1. Will remain on suicide precautions, in paper clothes 2. Will remain in Zone B under direct supervision of one-on-one staff at all times provided by [employer]; MICHAEL, SENIOR CLINICAL PROJECT MANAGER extrusion supervisor. 3. May have paper cups, plates, finger foods as well as a cardboard spoon with which to eat meals. 4. Follow [facility] Management of the Admitted Behavioral Health Patient policy. 5. Shower available in Zone B without restriction. 6. Personal belongings-soft items permitted at RN discretion. 7. Visitors-none at this time. 8. Activities: soft cart items approved per RN discretion. 9.? Bathroom available in Zone B without restriction. 10. Phone: limited to legal researcher on [facility] cordless phone at RN discretion. Due to INVOLUNTARY status, patient is being held at [facility] by the Department of Mental Health ([facility]) until 2nd certification by [facility] Psychiatrist can be performed (within 24 hours). Staff will provide de-escalation support (CPI) as needed. If patient wishes to leave [facility], staff will contact [facility] Crisis Screener ([phone]) and Quality Control Projectionist ([phone]) as soon as possible. In the event of elopement, notify [place] [employer] Police ([phone]). Patient is currently involuntarily at [facility]. [facility] Frontline Towboat Engineer will continue seeking placement. Please contact the Quality Control Projectionist for any needed changes to Safety Plan. Safety plan has been provided to interdepartmental care team. Patient will be transported by [email or web address] at time of discharge.
--- NOTE | 2025-02-03 07:37 | ED.PSYCHBOAR ---
Date of service: 02/03/25 Time of Service: 07:38 Psychiatric Border Handoff Update Brief Story: This is a 34-year-old male acting erratic currently on involuntary hold. He had previously been on EE. Reportedly the witness statements had some issues and so the patient required a second EEG. Second EEG was initiated yesterday evening. I reached out to certified medical coding specialist of the [facility], Dr. Alvarez. Status: EE Able to leave: no, this patient is an EE MDM Shift Events: 10:18 AM I spoke again with Dr. Alvarez from [facility] mental health. She reported that witness statements had not initially been sent in and as result second certification was done. Patient reportedly had had a bed at the [facility] yesterday. Dr. Alvarez reports that the witness statements are currently with [facility] mental health. She will check on the status of the bed. 10:45 AM I was in touch with Aftab Waldrop from [facility] he reported that second certification for this patient will be happening at 12 PM today. 2:24 PM Report from care management was that patient's second certification did not hold. [facility] has been reengaged to reassess the patient. 3:11 PM I spoke to Misha from [facility]. He had developed a safety plan for this patient. Patient did not have access to firearms. I met with the patient went over this plan. I offered him a refill on his lithium prescription which he declined. 3:25 PM I asked health community associate Leida to have a referral placed for the patient to have a primary care provider. Mediation Reconciliation performed: Yes Code Status ordered: Yes Diet ordered: Yes Discharge Plan Disposition Patient Disposition: Home Condition: Serious Discharge Details Clinical Impression: Amanda, Psychosis, Noncompliance with medications Primary Care Provider: Unknown,Unknown ED Provider: Ad Villalobos Home Meds and New Rx's Prescriptions: Continued multivitamin [Daily Multi-Vitamin] Tablet 1 tab PO DAILY lithium carbonate 150 mg capsule 150 mg PO BID Discharge Instructions Additional Instructions: You were seen in the emergency department for your compulsive behavior. You were screened by mental health. You were given a safety plan. As we discussed if you do not feel comfortable with this plan please return to the emergency department. A referral has been placed for you to have a primary care provider. Stand Alone Forms: Portal Information
[2025-02-03 15:23] VITALS: BP 129/88; PULSE 104; RESP 16; TEMP 37; O2SAT 100
--- NOTE | 2025-02-03 16:08 | [facility].SBSAFE ---
Date of service: 02/03/25 Time of Service: 14:29 Merrill-Brown Safety Plan Step 1: Warning signs 1.: Too much time around family (they're a trigger) 2.: Needing space 3.: Going too long between recovery meetings Step 2: Internal Coping Strategies Things I can do to take my mind off my problems without contacting another person: 1.: Prayer 2.: Meditation 3.: Connection with a God of my understanding Step 3: People and Social Settings People and social settings that provide distraction: 1. Name: KRISTEN Step 4: Assistance People whom I can ask for help during a crisis: 1. Name: KRISTEN 2. Name: Edel Cisneros 2. Contact Information: [phone] 3. Name: Ad Step 5: Professionals/Agencies Professionals or agencies I can contact during a crisis: 1. Clinician/Agency Name: Crisis Hotline 1. Phone: 775 2. Clinician/Agency Name: [facility] 2. 3. Local Emergency Department: [address] [place] [address] 4. [facility] ([facility]) Mobile Crisis Suicide Prevention Lifeline Phone: [phone] Step 6: Making the Environment Safer Making the environment safer (plan for lethal means safety): 1.: Keep to myself 2.: Practice Serenity Copy to Patient/Family Provided a copy of the Merrill Brown Safety Plan to Patient/Family: Yes Merrill Heredia Copyright Merrill-Brown Safety Planning Intervention The Merrill-Brown Safety Plan is copyrighted by Cori Momin, PhD & Eduardo Heredia, PhD (2007, 2020). Individual use of the Merrill-Brown Safety Plan form is permitted. Written permission from the authors is required for any changes to this form or use of this form in the electronic medical record. Additional resources are available from www.suicidesafetyplan.com.
--- NOTE | 2025-02-03 20:26 | W.ED.FU ---
Date of service: 02/03/25 Time of Service: 20:27 Follow Up Plan: Patient return to the emergency department. He did not wish to be seen for emergent medical screening exam. 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 I reviewed medical record and there was no instruction to be discharged with new medications. Patient was advised to continue his lithium twice daily. I confirmed that the patient does have lithium at home and reviewed discharge instructions with him.
== END 2025-02-03 16:14 | disposition home or self-care (01) ==
PROVIDERS: Registered Nurse Emergency; Emergency Provider Emergency Medicine
DX: F30.9 Manic episode, unspecified (principal); F29 Unspecified psychosis not due to a substance or known physiological condition; Z91.148 Patient's other noncompliance with medication regimen for other reason
CPT/HCPCS: 99285 ×2; 00123; 80048; 80307; 85027; G0378; 80178; 80329